=== PATIENT | male | born 1960 | race Two or more races ===

== ENCOUNTER 2017-06-16 05:37 | Inpatient (IN) | payer OTHER ==
[2017-06-16] MEDS: LACTATED RINGER'S 1,000 ML IV* (06:14)
[2017-06-16] MEDS: DEXAMETHASONE 1 MG TAB PO (06:15)
[2017-06-16] MEDS: traMADol 50 MG TAB PO ×4 (06:15→11:10)
[2017-06-16] MEDS ORDERED: CA CHLORIDE 10% 10 ML SYRINGE (06:46)
[2017-06-16] MEDS ORDERED: POLYMYXIN/BACITRACIN 1L IRRIG (06:46)
[2017-06-16] MEDS ORDERED: THROMBIN 5000 UNIT VIAL (06:46)
[2017-06-16] MEDS ORDERED: CEFAZOLIN 2 GM/50 ML (PMX) 50 ML IVPB (07:00)
[2017-06-16] MEDS ORDERED: SOD CHLORIDE 0.9% 100 ML, TRANEXAMIC ACID 3,000 MG IRR (07:00)
[2017-06-16] MEDS ORDERED: TRANEXAMIC ACID 1,000 MG/10 ML VIAL (07:00)
[2017-06-16] MEDS ORDERED: morphine SULFATE/PF (10 MG/10 ML) INJ (07:09)
[2017-06-16] MEDS ORDERED: MIDAZOLAM 1 MG/ML 2 ML INJ (07:10)
[2017-06-16] MEDS ORDERED: FENTAnyl 50 MCG/ML VIAL (07:10)
[2017-06-16] MEDS: BUPIVACAINE 0.5% (SDV) 30 ML, morphine SULFATE (PF) 8 MG, EPINEPHrine 0.3 MG, KETOROLAC... IRR (08:07)
[2017-06-16] MEDS: TRANEXAMIC ACID 1,000 MG in DEXTROSE 5% 100 ML IVPB (08:08)
[2017-06-16] MEDS ORDERED: PROPOFOL 20 ML (08:47)
[2017-06-16] MEDS ORDERED: LIDOCAINE 100 MG SYRINGE (08:47)
[2017-06-16] MEDS ORDERED: ONDANSETRON 4 MG INJ (08:47)
[2017-06-16] MEDS ORDERED: ACETAMINOPHEN 1000MG/100ML IV 100 ML (08:47)
[2017-06-16] MEDS ORDERED: CEFAZOLIN 1 GM INJ (08:48)
[2017-06-16] MEDS ORDERED: KETOROLAC 15 MG INJ IV (09:00)
[2017-06-16] MEDS ORDERED: OXYCODONE/ACETAMINOPHEN (5/325) TAB PO (09:00)
[2017-06-16] MEDS ORDERED: ACETAMINOPHEN 500 MG TAB PO (09:00)
[2017-06-16] MEDS ORDERED: DIPHENHYDRAMINE 50 MG INJ IV (09:00)
[2017-06-16] MEDS ORDERED: ONDANSETRON 4 MG INJ IV (09:00)
[2017-06-16] MEDS ORDERED: ZOLPIDEM 5 MG TAB PO (09:00)
[2017-06-16] MEDS ORDERED: morphine 2 MG INJ IV ×2 (09:00)
[2017-06-16] MEDS ORDERED: MAGNESIUM HYDROXIDE 30ML CUP PO (09:00)
[2017-06-16] MEDS: TRANEXAMIC ACID 1,000 MG in DEXTROSE 5% 100 ML IV (09:26)
[2017-06-16] MEDS: LACTATED RINGER'S 1,000 ML IV ×2 (09:35→18:59)
[2017-06-16] MEDS: CEFAZOLIN 1 GM/50 ML (PMX) 50 ML IVPB ×2 (09:35→17:38)
[2017-06-16 10:09] LABS: ADD MAN DIFF? NO
[2017-06-16 10:13] LABS: BASOPHILS % 0.2 % (0.0-2.0); EOSINOPHILS % 0.1 % (0.0-7.0); HEMATOCRIT 42.5 % (42.0-52.0); HEMOGLOBIN 14.6 g/dl (14.0-18.0); LYMPHOCYTES # 1.6 10^3/ul (0.8-2.9); LYMPHOCYTES % 10.4 % (15.0-51.0); MEAN CORPUSCULAR HEMOGLOBIN 31.9 pg (29.0-33.0); MEAN CORPUSCULAR HGB CONC 34.4 g/dl (32.0-37.0); MEAN CORPUSCULAR VOLUME 92.8 fl (82.0-101.0); MEAN PLATELET VOLUME 9.5 fl (7.4-10.4); MONOCYTE # 0.6 10^3/ul (0.3-0.9); NEUTROPHIL # 12.6 10^3/ul (1.6-7.5); NEUTROPHILS % 84.5 % (39.0-77.0); PLATELET COUNT 295 10^3/UL (140-415); RED BLOOD COUNT 4.58 10^6/ul (4.70-6.10); RED CELL DISTRIBUTION WIDTH 11.9 % (11.5-14.5)
[2017-06-16 10:13] LABS: WHITE BLOOD COUNT 14.9 10^3/ul (4.8-10.8)
[2017-06-16] MEDS: SENNA/DOCUSATE NA (8.6MG/50MG) TAB PO ×2 (13:24→20:56)
[2017-06-16] MEDS: DEXAMETHASONE 2 MG TAB PO ×2 (13:25→17:38)
[2017-06-16] MEDS: DEXAMETHASONE 0.1% 5 ML OPH RIGHT EYE (19:12)
[2017-06-16] MEDS: GABAPENTIN 300 MG CAP PO (20:51)
[2017-06-16] MEDS: LOSARTAN 50 MG TAB PO (20:51)
[2017-06-17] MEDS: LACTATED RINGER'S 1,000 ML IV (00:23)
[2017-06-17] MEDS: DEXAMETHASONE 2 MG TAB PO ×2 (00:23→07:08)
[2017-06-17] MEDS: CEFAZOLIN 1 GM/50 ML (PMX) 50 ML IVPB (00:24)
[2017-06-17 05:09] LABS: ADD MAN DIFF? NO
[2017-06-17 05:12] LABS: HEMATOCRIT 35.6 % (42.0-52.0); HEMOGLOBIN 12.5 g/dl (14.0-18.0); LYMPHOCYTES % 8.4 % (15.0-51.0); MEAN CORPUSCULAR HEMOGLOBIN 32.5 pg (29.0-33.0); MEAN CORPUSCULAR HGB CONC 35.1 g/dl (32.0-37.0); MEAN CORPUSCULAR VOLUME 92.5 fl (82.0-101.0); MEAN PLATELET VOLUME 9.8 fl (7.4-10.4); MONOCYTE # 0.8 10^3/ul (0.3-0.9); MONOCYTES % 6.3 % (0.0-11.0); NEUTROPHIL # 10.4 10^3/ul (1.6-7.5); NEUTROPHILS % 84.9 % (39.0-77.0); PLATELET COUNT 273 10^3/UL (140-415); RED BLOOD COUNT 3.85 10^6/ul (4.70-6.10); RED CELL DISTRIBUTION WIDTH 11.9 % (11.5-14.5)
[2017-06-17 05:12] LABS: WHITE BLOOD COUNT 12.3 10^3/ul (4.8-10.8)
[2017-06-17] MEDS: ASPIRIN 81 MG TAB PO (08:32)
[2017-06-17] MEDS: SENNA/DOCUSATE NA (8.6MG/50MG) TAB PO (08:32)
[2017-06-17] MEDS: DEXAMETHASONE 0.1% 5 ML OPH RIGHT EYE (08:35)
[2017-06-17] MEDS: OXYCODONE/ACETAMINOPHEN (5/325) TAB PO (08:36)
== END 2017-06-17 14:25 | disposition home or self-care (01) | DRG 470 ==
LOC: REC 05:37 → MS1 10:30
PROVIDERS: Orthopaedic Surgery
PROC: 0SR904A Replacement of Right Hip Joint with Ceramic on Polyethylene Synthetic Substitute, Uncemented, Open Approach (ICD-10-PCS; principal; 2017-06-16 07:00)
DX: M16.11 Unilateral primary osteoarthritis, right hip (principal); I10 Essential (primary) hypertension; E78.2 Mixed hyperlipidemia
CPT/HCPCS: 72170; 73530; 85025; 86999; 87086; 97110; 97116; 97163